=== PATIENT | female | born 1935 ===

== ENCOUNTER 2017-01-09 07:35 | Day surgery (SDC) | payer MEDICARE, OTHER ==
[2016-12-31 14:09] VITALS: BMI 25.4
[2017-01-09 08:19] VITALS: RESP 20
[2017-01-09] MEDS ORDERED: Bupivacaine-Epi 0.5%-1:200,000 PF Inj ONE (09:05)
[2017-01-09] MEDS ORDERED: ceFAZolin 1 gm FROZEN Premix 0 ML IVPB ONE (09:06)
[2017-01-09] MEDS ORDERED: Lidocaine 2% w Epi 1:100,000 Inj IJ ONE (09:11)
[2017-01-09 10:02] VITALS: BP 124/88; PULSE 67; TEMP 97.5; O2SAT 99
--- NOTE | 2017-01-09 10:05 | PCM.SURG1 ---
Surgeon's Initial Post Op Note - Surgeon's Notes Surgeon: Dr. Lazaro [facility] Ambassador: Dr. Gregg PGY-1 Type of Anesthesia: Local Pre-Operative Diagnosis: Right breast skin lesion Operative Findings: see operative note Post-Operative Diagnosis: see operative note Operation Performed: excision of skin lesion, right breast Specimen/Specimens Removed: r breast skin lesion Estimated Blood Loss: EBL {In ML}: 18 Blood Products Given: N/A Drains Used: No Drains Post-Op Condition: Good Date of Surgery/Procedure: 01/09/17 Time of Surgery/Procedure: 09:20
--- NOTE | 2017-01-09 10:11 | OP ---
PROCEDURE DATE: 01/09/2017 PREOPERATIVE DIAGNOSIS: Mole, right breast. POSTOPERATIVE DIAGNOSIS: Mole, right breast. PROCEDURE PERFORMED: Wide excision. FINDINGS: There is about a 1.5 x 1 cm lesion located on the undersurface of the right breast below t he nipple. This is slightly elevated, very pigmented and appears to be slightly rotated. PROCEDURE: Under local anesthesia utilizing lidocaine 2% with epinephrine, the patient was prepared and draped in sterile fashion. A wide elliptical incision at least a centimeter beyond the periphery of the lesion wide excision was done all the way down to the subcutaneous tissue. Bleeders controll ed with electrocautery. The wound was then closed utilizing subcutaneous interrupted sutures of 3-0 Vicryl and then aided with Dermabond. Estimated blood loss about 1 mL. No apparent complications. Lasha Lazaro MD cc: [id number] TT: 01/09/2017 10:11:21 rayna
== END 2017-01-09 10:12 | disposition home or self-care (01) ==
LOC: C.SDS 07:35
PROVIDERS: ATTEND Surgery
DX: L82.1 Other seborrheic keratosis (principal)